=== PATIENT | male | born 1980 ===

== ENCOUNTER 2021-08-11 18:57 | Emergency (ER) | payer MEDICAID, OTHER ==
[~2021-08-11] VITALS: Ht 172.7 cm; Wt 115.4 kg
[2021-08-11] MEDS ORDERED: DIPH,PERTUSS(ACELL),TET VAC/PF 0.5 ML IM-VACC ONE ×3 (19:30→22:30)
[2021-08-11] MEDS ORDERED: SILVER SULF. CRM 1% , 25GM TP ONE (19:30)
[2021-08-11] MEDS ORDERED: SILVER SULF. CRM 1% , 25GM ONE (21:44)
--- NOTE | 2021-08-11 22:56 | NUR ---
Patient/Caregiver given discharge instructions and they have confirmed that they understand the instructions. Patient ambulatory with steady gait.
[2021-08-11 22:57] VITALS: BP 152/99
== END 2021-08-11 22:58 | disposition home or self-care (01) ==
LOC: ED 22:53
DX: T21.22XA Burn of second degree of abdominal wall, initial encounter (principal); T31.0 Burns involving less than 10% of body surface; X11.8XXA Contact with other hot tap-water, initial encounter; Y93.89 Activity, other specified; Y92.89 Other specified places as the place of occurrence of the external cause; Y99.8 Other external cause status
CPT/HCPCS: 16020; 90471; 90715; 99283